=== PATIENT | female | born 1945 | race Caucasian/White ===

== ENCOUNTER 2018-12-16 07:30 | Inpatient (IN) | payer MEDICARE, BC ==
[2018-12-06 14:34] VITALS: Ht 162.6 cm; Wt 70.0 kg
[2018-12-16] VITALS (33 sets, daily range): BP systolic 106–119; BP diastolic 56–70; PULSE 96–133; RESP 14–17
[~2018-12-16] VITALS: Ht 162.6 cm; Wt 70.0 kg
[~2018-12-16 07:30] MED LIST: ACETAMINOPHEN 500 MG TAB PO ONE; CEFAZOLIN 2 GM/50 ML (PMX) 50 ML IVPB ONE; DEXAMETHASONE 4 MG/ML 1 ML INJ IV ONE; LACTATED RINGER'S 1,000 ML IV* SCH; PROPOFOL 200 MG INJ ONE; TRANEXAMIC ACID 1GM/100ML(PMX) 100 ML INTRA-OP X1 IVPB ONE; TRANEXAMIC ACID 1GM/100ML(PMX) 100 ML PRE-OP X1 IVPB ONE
[2018-12-16] MEDS ORDERED: LORA-444 PO (10:37)
[2018-12-16] MEDS ORDERED: SERT100T PO (10:37)
[2018-12-16] MEDS ORDERED: LEVO100T82 PO (10:38)
[2018-12-16] MEDS ORDERED: LIOT5TAB3 PO (10:38)
[2018-12-16] MEDS ORDERED: TURM500C9 PO (10:39)
[2018-12-16] MEDS ORDERED: [UNRECOGNIZED DRUG - CODE] PO (10:39)
[2018-12-16] MEDS ORDERED: CHOL100062 PO (10:42)
[2018-12-16] MEDS ORDERED: MELO7.5T38 PO (10:42)
[2018-12-16] MEDS: ACETAMINOPHEN 1000MG/100ML IV 100 ML IVPB SCH ×2 (10:54→11:31)
--- NOTE | 2018-12-16 11:55 | HPN ---
Date/Time of Note Date/Time of Note DATE: 12/16/18 TIME: 11:54 Interval H&P Admission Note Pt. seen H&P reviewed: No system changes WALDEMAR RIBEIRO Dec 16, 2018 11:54
[2018-12-16] MEDS ORDERED: METOCLOPRAMIDE 10 MG INJ ONE (12:36)
--- NOTE | 2018-12-16 12:39 | PREAC ---
Date/Time of Note Date/Time of Note DATE: 12/16/18 TIME: 12:37 Anesthesia Eval and Record Evaluation Time Pre-Procedure Interview DATE: 12/16/18 TIME: 12:37 Age 73 Sex female NPO: 8 hrs Preoperative diagnosis Right hip primary OA Planned procedure right hip toal revision Past Medical History Past Medical History: Includes Endo: Hypothyroid Neuro: Other (migrane) Surgery & Anesthesia Issues No known issue Meds Anticoagulation: No Beta Valerie within 24 hr: No Reason Beta Valerie not given: Pt. not on B-Valerie Reported Medications Cholecalciferol* (Vitamin D3*) 1,000 Unit Tablet, 1000 UNIT PO DAILY, TAB 12/16/18 Meloxicam* (Meloxicam*) 7.5 Mg Tablet, 7.5 MG PO BID, #30 TAB 12/16/18 Selenium* (Selenimin*) 200 Mcg Tablet, 200 MCG PO DAILY, TAB 12/16/18 Turmeric Root Extract (Turmeric) 500 Mg Capsule, 500 MG PO DAILY, CAP 12/16/18 Liothyronine Sodium* (Cytomel*) 5 Mcg Tablet, 5 MCG PO DAILY, TAB 12/16/18 Levothyroxine Sodium* (Levoxyl*) 100 Mcg Tablet, 100 MCG PO BEFORE BREAKFAST, #30 TAB 12/16/18 Sertraline Hcl* (Zoloft*) 100 Mg Tablet, 100 MG PO QHS, #30 TAB 12/16/18 Lorazepam* (Ativan*) 2 Mg Tablet, 2 MG PO BID PRN for SLEEP, #30 TAB 12/16/18 Current Medications Lactated Ringer's 1,000 ml @ 125 mls/hr Q8H IV* ; Start 12/16/18 at 06:00; Stop 12/16/18 at 13:59 Acetaminophen 100 ml @ 400 mls/hr ONCE IVPB Last administered on 12/16/18at 11:31; Admin Dose 400 MLS/HR; Start 12/16/18 at 10:54; Stop 12/16/18 at 16:00 Meds reviewed: Yes Allergies Coded Allergies: Sulfa (Sulfonamide Antibiotics) (Verified Allergy, Severe, RESP DIFFICULT Y, 12/06/18) TURN RED adhesive tape (Verified Allergy, Unknown, 12/16/18) Uncoded Allergies: NARCOTICS (Adverse Reaction, Unknown, PT HAS HALLUCINATIONS, 12/16/18) Allergies Reviewed: Yes Labs/Studies Labs Reviewed: Reviewed by anesthesiologist Blood Bank Test 12/16/18 10:45 Antibody Screen NEGATIVE Blood Type O POSITIVE test: N/A Studies: ECG (sr), CXR (nl) Pre-procedure Exam Airway: Adequate mouth opening Mallampati: Mallampati II Teeth: Normal Lung: Normal Heart: Normal ASA Physical Status ASA physical status: 2 Emergency: None Planned Anesthetic General/MAC: ETT, LMA Neuraxial: Spinal Planned Pain Management Parenteral pain med Pre-operative Attestations Prior to commencing anesthesia and surgery, the patient was re-evaluated, there was verification of: *The patient's identity *The results of appropriate recent lab work and preoperative vital signs *The above evaluation not changing prior to induction *Anesthetic plan, risk benefits, alternative and complications discussed with patient/family; questions answered; patient/family understands, accepts and wishes to proceed. CORINE HORAN MD Dec 16, 2018 12:39
[2018-12-16] MEDS ORDERED: POLYMYXIN B 500000 UNIT INJ ONE (12:42)
[2018-12-16] MEDS ORDERED: BACITRACIN 50000 UNITS INJ ONE (12:43)
[2018-12-16] MEDS ORDERED: DIPHENHYDRAMINE 50 MG INJ IV PRN (13:00)
[2018-12-16] MEDS ORDERED: LABETALOL HCL 20MG INJ IV PRN (13:00)
[2018-12-16] MEDS ORDERED: ONDANSETRON 4 MG INJ IV PRN (13:00)
[2018-12-16] MEDS ORDERED: hydrALAzine 20 MG INJ IV PRN (13:00)
[2018-12-16] MEDS ORDERED: HYDROmorphONE 1 MG/5 ML IV SYRINGE IV PRN ×3 (13:00)
[2018-12-16] MEDS ORDERED: ONDANSETRON 4 MG INJ ONE (13:04)
[2018-12-16] MEDS ORDERED: DEXAMETHASONE 4 MG/ML 5 ML INJ ONE (13:04)
[2018-12-16] MEDS ORDERED: PROPOFOL 20 ML ONE (13:04)
[2018-12-16] MEDS ORDERED: HYDROmorphONE 2 MG/ML SYG ONE (13:05)
[2018-12-16] MEDS ORDERED: TRANEXAMIC ACID 1GM/100ML(PMX) 100 ML ONE ×2 (13:18→13:53)
[2018-12-16] MEDS ORDERED: CEFAZOLIN 1 GM INJ ONE (13:28)
[2018-12-16] MEDS ORDERED: POLYMYXIN B 500000 UNIT INJ IRR ONE (13:59)
[2018-12-16] MEDS ORDERED: PHENYLephrine (100 MCG/ML) 5ML SYG ONE (14:34)
[2018-12-16] MEDS ORDERED: ALBUMIN HUMAN 5% 250 ML ONE (15:17)
[2018-12-16] MEDS ORDERED: ROPIVACAINE 0.5 % 30 ML VIAL ONE (15:18)
[2018-12-16] MEDS ORDERED: EPHEDrine 50 MG INJ ONE (15:35)
--- NOTE | 2018-12-16 15:49 | SIPON ---
Date/Time of Note Date/Time of Note DATE: 12/16/18 TIME: 15:47 Operative Report Preoperative Diagnosis wear of metal on metal hip right Postoperative Diagnosis same Operation/Procedure Performed revision of right JUSTINE Surgeon see signature line printing assistant none Anesthesia: spinal Estimated blood loss: other Transfusion Required none Specimen cultures Grafts/Implants DePuy hip, 60 cup, 40 head, X neck on ,modular han stem Complications none WALDEMAR RIBEIRO Dec 16, 2018 15:49
--- NOTE | 2018-12-16 15:55 | OPR ---
Date/Time of Note Date/Time of Note DATE: 12/16/18 TIME: 15:49 Operative Report Procedure Date: Dec 16, 2018 Preoperative Diagnosis Failed right hip replacement, wear of kcybv-tp-[id number] prosthesis Postoperative Diagnosis Same Operation/Procedure Performed Revision of right total hip replacement Surgeon see signature line Quarrying Manager None Anesthesia Type: spinal Estimated Blood Loss: other Transfusion none Specimen Cultures Grafts/Implants [place] cup, size 60 with 40 x 60 mm 10 degree liner, size X neck for Luis Angel modular stem and 40 mm ceramic head Tubes/Drains None Complications none Pt Condition Post Procedure: stable Disposition: PACU Indications The patient is a 73-year-old female with pain and symptoms related to a right koywa-pa-kgted hip. Her metal ion levels are very high suggesting wear and osteolysis Procedure Description The patient was placed supine on the operating room table. The right hip was prepped and draped in the usual manner. An anterior approach was used. The plane between the sartorius and tensor fascia saulo was developed in a blunt fashion. Branches of the circumflex vessels were identified and cauterized with aqua Mantis. The hip capsule was opened. Cultures were obtained. There was evidence of wear and metallosis at the trunnion. The femoral neck and head were removed. The modular stem was left in place. The acetabular component was then removed with an explant. The acetabulum was reamed up to a size 58. A 60 mm cup was well fitting. This was placed with 2 screws to enhance fixation. A liner was placed to accommodate a 40 mm femoral head. The liner had a 10 degree build-up on the anterolateral aspect to enhance stability. Different necks were tried and the modular stem. The size X stem which increased the offset and decrease the length resulted in the best stability. It was noted that with this combination, the right hip has increased offset of about 3 mm and increased length of about 3 mm compared to the left side. This was accepted due to excellent stability. Any attempt to change the length or offset resulted in an unstable hip. Therefore the final prosthesis was placed to create the most stable hip. A 40 mm ceramic head was placed. The hip was thoroughly irrigated and injected with pain cocktail. Hemostasis was confirmed. The wound was closed in layers using #1 strata fix for deep fascia, 2-0 Vicryl for subcutaneous tissue and 3-0 Monocryl for the skin. Patient was transferred to the recovery room in stable condition WALDEMAR RIBEIRO Dec 16, 2018 15:55
[2018-12-16] MEDS ORDERED: NALOXONE (0.4 MG/ML) INJ IV PRN (16:00)
[2018-12-16] MEDS ORDERED: MAGNESIUM HYDROXIDE 30ML CUP PO PRN (16:00)
[2018-12-16] MEDS ORDERED: KETOROLAC 15 MG INJ IV PRN (16:00)
[2018-12-16] MEDS ORDERED: NACL 0.9% 3 ML SYG IV SCH (16:00)
--- NOTE | 2018-12-16 16:21 | CONS ---
Assessment/Plan Assessment/Plan Problems: (1) Tachycardia Status: Acute Comment: Pt. is noted post-operatively to have lost significant blood. On LR replacement. Check H/H stat and see if transfusion needed. Expect this will resolve shortly. (2) Anxiety disorder Status: Chronic Comment: lorazepam prn. (3) Major depressive disorder, recurrent, in full remission Status: Chronic Comment: cont. sertraline 100 mg/d (4) Hypothyroidism Status: Chronic Comment: Cont. LT4 and T3. Will check TFT's especially considering tachycardia (5) Migraine without aura and without status migrainosus, not intractable Status: Chronic Comment: Pt. takes no meds for this. Will monitor in case it should occur. (6) Failure of right total hip arthroplasty Status: Resolved Comment: Per primary team (7) Aftercare following right hip joint replacement surgery Status: Acute Comment: Pt. is immediately post-op. Expect tachycardia to resolve and mental status to improve as she recovers from anesthesia. PT and pain control per primary team. Will follow and manage any other medical issues should they arise. Consultation Date/Type/Reason Admit Date/Time Dec 16, 2018 at 10:15 Date of Consultation: Dec 16, 2018 Type of Consult Medicine Reason for Consultation Medical Management Requesting Provider: WALDEMAR RIBEIRO Date/Time of Note DATE: 12/16/18 TIME: 16:10 Hx of Present Illness The patient is a 73-year-old C female with h/o hypothyroidism and migraines s/p R hip replacement in the past. She has been suffering pain and symptoms related to a right qetac-hq-skjfu hip. She sought f/u w/ ortho who found metal ion levels were very high suggesting wear and osteolysis. Pt. scheduled for revision surgery today. Is immediately post-op and not able to give clear history at this time. Subjective hx not possible: pt non-verbal Past Medical History Medical History: hypothyroid, other (OA, migraines, anxiety, depression) Home Meds Reported Medications Cholecalciferol* (Vitamin D3*) 1,000 Unit Tablet, 1000 UNIT PO DAILY, TAB 12/16/18 Meloxicam* (Meloxicam*) 7.5 Mg Tablet, 7.5 MG PO BID, #30 TAB 12/16/18 Selenium* (Selenimin*) 200 Mcg Tablet, 200 MCG PO DAILY, TAB 12/16/18 Turmeric Root Extract (Turmeric) 500 Mg Capsule, 500 MG PO DAILY, CAP 12/16/18 Liothyronine Sodium* (Cytomel*) 5 Mcg Tablet, 5 MCG PO DAILY, TAB 12/16/18 Levothyroxine Sodium* (Levoxyl*) 100 Mcg Tablet, 100 MCG PO BEFORE BREAKFAST, #30 TAB 12/16/18 Sertraline Hcl* (Zoloft*) 100 Mg Tablet, 100 MG PO QHS, #30 TAB 12/16/18 Lorazepam* (Ativan*) 2 Mg Tablet, 2 MG PO BID PRN for SLEEP, #30 TAB 12/16/18 Medications Current Medications Hydromorphone HCl (Dilaudid) 0.2 mg PACU PRN IV MILD PAIN 1-3; Start 12/16/18 at 13:00; Stop 12/16/18 at 20:00 Hydromorphone HCl (Dilaudid) 0.4 mg PACU PRN IV MOD PAIN 4-6; Start 12/16/18 at 13:00; Stop 12/16/18 at 20:00 Hydromorphone HCl (Dilaudid) 0.6 mg PACU PRN IV SEVERE PAIN 7-10; Start 12/16/18 at 13:00; Stop 12/16/18 at 20:00 Ondansetron HCl (Zofran Inj) 4 mg PACU ORDER PRN IV NAUSEA/VOMITING; Start 12/16/18 at 13:00; Stop 12/16/18 at 20:00 Labetalol HCl (Labetalol) 5 mg PACU ORDER PRN IV HIGH BLOOD PRESSURE; Start 12/16/18 at 13:00; Stop 12/16/18 at 20:00 Hydralazine HCl (Apresoline) 5 mg PACU ORDER PRN IV HIGH BLOOD PRESSURE; Start 12/16/18 at 13:00; Stop 12/16/18 at 20:00 Diphenhydramine HCl (Benadryl) 25 mg PACU ORDER PRN IV .PRURITUS; Start 12/16/18 at 13:00; Stop 12/16/18 at 20:00 Cholecalciferol (Vitamin D) 1,000 unit DAILY PO ; Start 12/17/18 at 09:00; Status UNV Levothyroxine Sodium (Synthroid) 100 mcg BEFORE BREAKFAST PO ; Start 12/17/18 at 07:00; Status UNV Liothyronine Sodium (Cytomel) 5 mcg DAILY PO ; Start 12/17/18 at 09:00; Status UNV Lorazepam (Ativan) 2 mg BID PRN PO SLEEP; Start 12/16/18 at 16:00; Status UNV Sertraline HCl (Zoloft) 100 mg QHS PO ; Start 12/16/18 at 21:00; Status UNV Lactated Ringer's 1,000 ml @ 80 mls/hr [id number] IV ; Start 12/16/18 at 15:55; Status UNV Hydromorphone HCl (Dilaudid) 1 mg Q3H PRN IV .BREAKTHROUGH PAIN; Start 12/16/18 at 16:00; Status UNV Ondansetron HCl (Zofran Inj) 4 mg Q4H PRN IV NAUSEA/VOMITING; Start 12/17/18 at 16:00; Status UNV Cefazolin Sodium/ Dextrose 50 ml @ 100 mls/hr Q8H IVPB ; Start 12/16/18 at 16:00; Stop 12/17/18 at 08:29; Status UNV Celecoxib (Celebrex) 100 mg BID PO ; Start 12/17/18 at 09:00; Status UNV Gabapentin (Neurontin) 100 mg TID PO ; Start 12/16/18 at 21:00; Status UNV Pantoprazole (Protonix Tab) 40 mg DAILY@06 PO ; Start 12/17/18 at 06:00; Status UNV Docusate Sodium (Colace) 200 mg BID PO ; Start 12/17/18 at 09:00; Stop 12/19/18 at 21:01; Status UNV Magnesium Hydroxide (Milk Of Mag) 30 ml HS PRN PO .CONSTIPATION; Start 12/16/18 at 16:00; Status UNV Ketorolac Tromethamine (Toradol) 15 mg Q6H PRN IV .PAIN; Start 12/16/18 at 16:00; Status UNV Naloxone HCl (Narcan) 0.2 mg Q2M PRN IV .RESP RATE; Start 12/16/18 at 16:00; Status UNV IV Flush (NS 3 ml) 3 ml per protocol IV ; Start 12/16/18 at 16:00; Status UNV Aspirin (Halfprin) 81 mg BID PO ; Start 12/17/18 at 09:00; Status UNV Allergies: Coded Allergies: Sulfa (Sulfonamide Antibiotics) (Verified Allergy, Severe, RESP DIFFICULTY, 12/06/18) TURN RED adhesive tape (Verified Allergy, Unknown, 12/16/18) Uncoded Allergies: NARCOTICS (Adverse Reaction, Unknown, PT HAS HALLUCINATIONS, 12/16/18) Past Surgical History Past Surgical Hx: other (right total hip in the past, o/w unknown) Family History Significant Family History: other (not available at this time) Social History pt. unable to give this history at this time. Alcohol Use: other (unknown) Smoking Status: Former smoker Drug Use: other (unknown) Exam/Review of Systems Exam Vitals VS - Last 72 Hours, by Label Date Temp Pulse Resp B/P (MAP) Pulse Ox O2 O2 Flow FiO2 Time Delivery Rate 12/16/18 98.7 15:59 Vital Signs Date Temp Pulse Resp B/P (MAP) Pulse Ox O2 O2 Flow FiO2 Time Delivery Rate 12/16/18 98.7 15:59 Constitutional: well developed, non-verbal; No alert, No oriented Eyes: nl conjunctiva, EOMI, nl lids, nl sclera, PERRL ENMT: nl external ears & nose, nl lips & teeth, mucosa pink and moist Neck: supple, non-tender; No bruits, No masses, No thyromegaly Respiratory: clear to auscultation, normal air movement Cardiovascular: nl pulses; No regular rate and rhythm (tachycardic and regular, rate 120-130 bpm), No edema Gastrointestinal: soft, nl liver, spleen, non-tender, bowel sounds; No mass, No rebound or guarding Musculoskeletal: nl extremities to inspection Extremities: normal pulses; No cyanosis, No clubbing, No edema Neurological: lethargic Medications Medication Current Medications Hydromorphone HCl (Dilaudid) 0.2 mg PACU PRN IV MILD PAIN 1-3; Start 12/16/18 at 13:00; Stop 12/16/18 at 20:00 Hydromorphone HCl (Dilaudid) 0.4 mg PACU PRN IV MOD PAIN 4-6; Start 12/16/18 at 13:00; Stop 12/16/18 at 20:00 Hydromorphone HCl (Dilaudid) 0.6 mg PACU PRN IV SEVERE PAIN 7-10; Start 12/16/18 at 13:00; Stop 12/16/18 at 20:00 Ondansetron HCl (Zofran Inj) 4 mg PACU ORDER PRN IV NAUSEA/VOMITING; Start 12/16/18 at 13:00; Stop 12/16/18 at 20:00 Labetalol HCl (Labetalol) 5 mg PACU ORDER PRN IV HIGH BLOOD PRESSURE; Start 12/16/18 at 13:00; Stop 12/16/18 at 20:00 Hydralazine HCl (Apresoline) 5 mg PACU ORDER PRN IV HIGH BLOOD PRESSURE; Start 12/16/18 at 13:00; Stop 12/16/18 at 20:00 Diphenhydramine HCl (Benadryl) 25 mg PACU ORDER PRN IV .PRURITUS; Start 12/16/18 at 13:00; Stop 12/16/18 at 20:00 Cholecalciferol (Vitamin D) 1,000 unit DAILY PO ; Start 12/17/18 at 09:00; Status UNV Levothyroxine Sodium (Synthroid) 100 mcg BEFORE BREAKFAST PO ; Start 12/17/18 a t 07:00; Status UNV Liothyronine Sodium (Cytomel) 5 mcg DAILY PO ; Start 12/17/18 at 09:00; Status UNV Lorazepam (Ativan) 2 mg BID PRN PO SLEEP; Start 12/16/18 at 16:00; Status UNV Sertraline HCl (Zoloft) 100 mg QHS PO ; Start 12/16/18 at 21:00; Status UNV Lactated Ringer's 1,000 ml @ 80 mls/hr [id number] IV ; Start 12/16/18 at 15:55; Status UNV Hydromorphone HCl (Dilaudid) 1 mg Q3H PRN IV .BREAKTHROUGH PAIN; Start 12/16/18 at 16:00; Status UNV Ondansetron HCl (Zofran Inj) 4 mg Q4H PRN IV NAUSEA/VOMITING; Start 12/17/18 at 16:00; Status UNV Cefazolin Sodium/ Dextrose 50 ml @ 100 mls/hr Q8H IVPB ; Start 12/16/18 at 16:00; Stop 12/17/18 at 08:29; Status UNV Celecoxib (Celebrex) 100 mg BID PO ; Start 12/17/18 at 09:00; Status UNV Gabapentin (Neurontin) 100 mg TID PO ; Start 12/16/18 at 21:00; Status UNV Pantoprazole (Protonix Tab) 40 mg DAILY@06 PO ; Start 12/17/18 at 06:00; Status UNV Docusate Sodium (Colace) 200 mg BID PO ; Start 12/17/18 at 09:00; Stop 12/19/18 at 21:01; Status UNV Magnesium Hydroxide (Milk Of Mag) 30 ml HS PRN PO .CONSTIPATION; Start 12/16/18 at 16:00; Status UNV Ketorolac Tromethamine (Toradol) 15 mg Q6H PRN IV .PAIN; Start 12/16/18 at 16:00; Status UNV Naloxone HCl (Narcan) 0.2 mg Q2M PRN IV .RESP RATE; Start 12/16/18 at 16:00; Status UNV IV Flush (NS 3 ml) 3 ml per protocol IV ; Start 12/16/18 at 16:00; Status UNV Aspirin (Halfprin) 81 mg BID PO ; Start 12/17/18 at 09:00; Status UNV BARBARA LU MD Dec 16, 2018 16:21
[2018-12-16] MEDS: CEFAZOLIN 2 GM/50 ML (PMX) 50 ML IVPB SCH ×2 (16:29→23:41)
[2018-12-16] MEDS: SERTRALINE 100 MG TAB PO SCH (20:53)
[2018-12-16] MEDS: GABAPENTIN 100 MG CAP PO SCH ×2 (20:53→20:57)
[2018-12-16] MEDS: LACTATED RINGER'S 1,000 ML IV SCH (20:54)
[2018-12-16] MEDS: HYDROmorphONE 1 MG/ML SYG IV PRN (22:10)
[2018-12-16] MEDS: ONDANSETRON 4 MG INJ IV PRN (22:17)
[2018-12-17] VITALS (12 sets, daily range): BP systolic 11–127; BP diastolic 54–59; PULSE 65–82; RESP 17–20
[2018-12-17] MEDS: LORAZEPAM 1 MG TAB PO PRN ×2 (01:40→23:06)
[2018-12-17] MEDS: LACTATED RINGER'S 1,000 ML IV SCH (04:25)
[2018-12-17] MEDS: PANTOPRAZOLE (EC) 40 MG TAB PO SCH (06:32)
[2018-12-17] MEDS ORDERED: LIOTHYRONINE 5 MCG TAB PO SCH ×2 (07:00→09:00)
[2018-12-17] MEDS ORDERED: LEVOTHYROXINE 100 MCG TAB PO SCH (07:00)
[2018-12-17] MEDS: CHOLECALCIFEROL 1,000 UNIT TAB PO SCH (09:00)
[2018-12-17] MEDS: GABAPENTIN 100 MG CAP PO SCH ×2 (09:00→12:16)
[2018-12-17] MEDS: HYDROmorphONE 1 MG/ML SYG IV PRN ×2 (09:11→16:35)
[2018-12-17] MEDS: DOCUSATE SODIUM 100 MG CAP PO SCH ×2 (09:12→20:13)
[2018-12-17] MEDS: ASPIRIN (EC) 81 MG TAB PO SCH ×2 (09:12→20:13)
[2018-12-17] MEDS: CEFAZOLIN 2 GM/50 ML (PMX) 50 ML IVPB SCH (09:16)
[2018-12-17] MEDS: CELECOXIB 100 MG CAP PO SCH ×2 (09:36→20:13)
--- NOTE | 2018-12-17 12:18 | PAC ---
Date/Time of Note Date/Time of Note DATE: 12/17/18 TIME: 12:18 Post-Anesthesia Notes Post-Anesthesia Note Last documented vital signs Vital Signs Date Temp Pulse Resp B/P (MAP) Pulse Ox O2 O2 Flow FiO2 Time Delivery Rate 12/17/18 68 12:11 12/17/18 98.0 70 20 104/59 98 Room Air 11:16 (74) 12/17/18 2.0 07:44 12/16/18 27 21:19 Activity: WNL Respiratory function: WNL Cardiovascular function: WNL Mental status: Baseline Pain reasonably controlled: Yes Hydration appropriate: Yes Nausea/Vomiting absent: No CORINE HORAN MD Dec 17, 2018 12:18
--- NOTE | 2018-12-17 13:54 | EN ---
Date/Time of Note Date/Time of Note DATE: 12/17/18 TIME: 13:52 Event Note Medicine Medicine Event Note Additional history now available: PSH: L-S spine fusion, B inguinal hernia, R JUSTINE FHx: Alzheimer disease Shx: IRASEMA Mcneal, raised in [place], in [facility] since 1978, has masters in psych, works as psychologist and teaches, , 2 children, (+) social EtOH, distant h/o adolescent smoking tobacco, no IDU BARBARA LU MD Dec 17, 2018 13:54
--- NOTE | 2018-12-17 13:59 | CONS ---
Assessment/Plan Assessment/Plan Problems: (1) Postoperative anemia due to acute blood loss Status: Acute Comment: Hgb down to 7.9 today. No need for transfusion provided it does not continue to decrease. Will start FeSO4 325 mg po tid. If Hgb gets to be < 7, will order PRBC. Check again tomorrow. (2) Tachycardia Status: Resolved Comment: As expected (3) Hypothyroidism Status: Chronic Comment: Overtreated w/ thyroid hormone and this likely played a part in pt.'s tachycardia. Will stop liothyronine for now. Can restart later at a lower dosage. Will also decrease LT4 to 88 mcg. Reeval as outpt. (4) Anxiety disorder Status: Chronic Comment: lorazepam as needed (5) Major depressive disorder, recurrent, in full remission Status: Chronic Comment: Cont. sertraline (6) Failure of right total hip arthroplasty Status: Resolved Comment: per primary team (7) Aftercare following right hip joint replacement surgery Status: Acute Comment: Doing well POD#1. Does not want gabapentin and this should be fine. Pain management and PT per primary team. Monitor blood counts and plan d/c when primary team ready to do so. Consultation Date/Type/Reason Admit Date/Time Dec 16, 2018 at 10:15 Initial Consult Date 12/16/18 Type of Consult Medicine Reason for Consultation Medical Management Requesting Provider: WALDEMAR RIBEIRO Date/Time of Note DATE: 12/17/18 TIME: 13:54 24 HR Interval Summary Constitutional: no complaints, improved Detailed Summary Respiratory: no complaints Cardiovascular: no complaints Gastrointestinal: no complaints Genitourinary: no complaints Musculoskeletal: bone/joint pain (R hip but does not bother her at rest, feels like fire when she stands on it) Neurologic: no complaints Exam/Review of Systems Exam Vitals VS - Last 72 Hours, by Label Date Temp Pulse Resp B/P (MAP) Pulse Ox O2 O2 Flow FiO2 Time Delivery Rate 12/17/18 68 12:11 12/17/18 98.0 69 20 104/59 98 Room Air 11:16 (74) 12/17/18 66 08:13 12/17/18 Nasal 2.0 07:44 Cannula 12/17/18 97.6 67 20 127/59 98 07:22 (81) 12/17/18 98.4 65 17 106/54 98 04:27 (71) 12/17/18 66 04:00 12/17/18 2.0 01:40 12/17/18 98.5 76 17 96/55 (69) 97 00:37 12/17/18 76 00:00 12/16/18 2.0 27 21:19 12/16/18 98.4 96 17 109/61 98 20:31 (77) 12/16/18 Nasal 2.0 20:30 Cannula 12/16/18 102 20:00 12/16/18 106 19:56 12/16/18 98.6 108 15 106/62 99 Nasal 2.0 18:23 (77) Cannula 12/16/18 108 14 108/58 99 Nasal 2.0 18:18 (75) Cannula 12/16/18 110 14 109/62 99 Nasal 2.0 18:13 (78) Cannula 12/16/18 110 14 109/63 99 Nasal 2.0 18:08 (78) Cannula 12/16/18 112 15 111/58 100 Nasal 2.0 18:03 (75) Cannula 12/16/18 112 14 106/67 100 Nasal 2.0 17:58 (80) Cannula 12/16/18 112 16 107/68 100 Nasal 2.0 17:53 (81) Cannula 12/16/18 112 16 109/67 100 Nasal 2.0 17:48 (81) Cannula 12/16/18 112 15 114/66 100 Nasal 2.0 17:43 (82) Cannula 12/16/18 114 16 112/66 100 Nasal 2.0 17:38 (81) Cannula 12/16/18 114 15 111/68 100 Nasal 2.0 17:33 (82) Cannula 12/16/18 116 17 109/63 99 Nasal 2.0 17:28 (78) Cannula 12/16/18 116 16 110/65 100 Nasal 2.0 17:23 (80) Cannula 12/16/18 116 14 113/70 100 Nasal 2.0 17:18 (84) Cannula 12/16/18 116 16 111/56 100 Nasal 2.0 17:13 (74) Cannula 12/16/18 118 16 111/58 100 Nasal 2.0 17:08 (75) Cannula 12/16/18 116 15 115/60 100 Nasal 2.0 17:03 (78) Cannula 12/16/18 118 17 115/59 99 Nasal 2.0 16:58 (77) Cannula 12/16/18 118 16 117/66 100 Nasal 2.0 16:53 (83) Cannula 12/16/18 Nasal 2.0 16:50 Cannula 12/16/18 118 17 119/62 99 Nasal 16:48 (81) Cannula 12/16/18 118 16 114/65 99 Nasal 16:43 (81) Cannula 12/16/18 118 16 117/66 99 Nasal 16:38 (83) Cannula 12/16/18 120 17 114/67 99 Nasal 16:33 (83) Cannula 12/16/18 120 16 111/57 99 Nasal 16:28 (75) Cannula 12/16/18 120 16 112/59 99 Nasal 16:23 (76) Cannula 12/16/18 120 15 115/62 98 Nasal 16:18 (79) Cannula 12/16/18 118 16 116/61 99 Nasal 16:13 (79) Cannula 12/16/18 127 16 111/62 99 Nasal 16:08 (78) Cannula 12/16/18 126 16 110/62 98 Nasal 16:03 (78) Cannula 12/16/18 98.7 15:59 12/16/18 100.0 133 17 118/56 98 Nasal 15:58 (76) Cannula Vital Signs Date Temp Pulse Resp B/P (MAP) Pulse Ox O2 O2 Flow FiO2 Time Delivery Rate 12/17/18 68 12:11 12/17/18 98.0 20 104/59 98 Room Air 11:16 (74) 12/17/18 2.0 07:44 12/16/18 27 21:19 Intake and Output 12/16/18 12/16/18 12/17/18 1515:00 23:00 07:00 IntakeIntake Total 2000 ml 1150 ml OutputOutput Total 1000 ml BalanceBalance 1000 ml 1150 ml Constitutional: alert, oriented, well developed Psych: no complaints, nl mood/affect Respiratory: clear to auscultation, normal air movement Cardiovascular: regular rate and rhythm, nl pulses; No edema, No murmurs/extra sounds, No rub Gastrointestinal: soft, nl liver, spleen, non-tender, bowel sounds; No mass, No rebound or guarding Musculoskeletal: nl extremities to inspection Extremities: normal pulses; No cyanosis, No clubbing, No edema Neurological: MOLD MOVER II-XII intact, nl mental status, nl speech, nl strength Results Result Diagram: 12/17/18 0638 12/17/18 0638 Results 24hrs Laboratory Tests Test 12/16/18 16:35 12/17/18 06:38 Hemoglobin 10.5 L 7.8 #L Hematocrit 33.2 L 24.2 #L White Blood Count 11.9 H Red Blood Count 2.56 L Mean Corpuscular Volume 94.5 Mean Corpuscular Hemoglobin 30.5 Mean Corpuscular Hemoglobin Concent 32.2 Red Cell Distribution Width 12.4 Platelet Count 225 Mean Platelet Volume 9.2 Immature Granulocytes % 0.700 H Neutrophils % 76.2 Lymphocytes % 11.6 L Monocytes % 11.3 H Eosinophils % 0.1 Basophils % 0.1 Nucleated Red Blood Cells % 0.0 Immature Granulocytes # 0.080 H Neutrophils # 9.0 H Lymphocytes # 1.4 Monocytes # 1.3 H Eosinophils # 0.0 Basophils # 0.0 Nucleated Red Blood Cells # 0.0 Sodium Level 138 Potassium Level 4.3 Chloride Level 104 Carbon Dioxide Level 28 Anion Gap 6 Blood Urea Nitrogen 11 Creatinine 0.67 Est Glomerular Filtrat Rate mL/min Glucose Level 119 Calcium Level 8.9 Thyroid Stimulating Hormone (TSH) < 0.015 L Free Thyroxine Index 2.28 Thyroxine (T4) 5.7 Triiodothyronine (T3) Uptake 40.0 Medications Medication Current Medications Cholecalciferol (Vitamin D) 1,000 unit DAILY PO ; Start 12/17/18 at 09:00 Lorazepam (Ativan) 2 mg BID PRN PO SLEEP Last administered on 12/17/18at 01:40; Admin Dose 2 MG; Start 12/16/18 at 16:00 Sertraline HCl (Zoloft) 100 mg QHS PO Last administered on 12/16/18at 20:53; Admin Dose 100 MG; Start 12/16/18 at 21:00 Lactated Ringer's 1,000 ml @ 80 mls/hr [id number] IV Last administered on 12/16/18at 20:54; Admin Dose 80 MLS/HR; Start 12/16/18 at 15:55 Hydromorphone HCl (Dilaudid) 1 mg Q3H PRN IV .BREAKTHROUGH PAIN Last administered on 12/17/18at 09:11; Admin Dose 1 MG; Start 12/16/18 at 16:00 Celecoxib (Celebrex) 100 mg BID PO Last administered on 12/17/18 09:36; Admin Dose 100 MG; Start 12/17/18 at 09:00 Pantoprazole (Protonix Tab) 40 mg DAILY@06 PO Last administered on 12/17/18 06:32; Admin Dose 40 MG; Start 12/17/18 at 06:00 Docusate Sodium (Colace) 200 mg BID PO Last administered on 12/17/18at 09:12; Admin Dose 200 MG; Start 12/17/18 at 09:00; Stop 12/19/18 at 21:01 Magnesium Hydroxide (Milk Of Mag) 30 ml HS PRN PO .CONSTIPATION; Start 12/16/18 at 16:00 Ketorolac Tromethamine (Toradol) 15 mg Q6H PRN IV .PAIN Last administered on 12/16/18at 20:53; Admin Dose 15 MG; Start 12/16/18 at 16:00 Naloxone HCl (Narcan) 0.2 mg Q2M PRN IV .RESP RATE; Start 12/16/18 at 16:00 IV Flush (NS 3 ml) 3 ml per protocol IV ; Start 12/16/18 at 16:00 Aspirin (Halfprin) 81 mg BID PO Last administered on 12/17/18at 09:12; Admin Dos e 81 MG; Start 12/17/18 at 09:00 Ondansetron HCl (Zofran Inj) 4 mg Q4H PRN IV NAUSEA/VOMITING Last administered on 12/16/18at 22:17; Admin Dose 4 MG; Start 12/16/18 at 22:00 Levothyroxine Sodium (Synthroid) 88 mcg DAILY@06 PO ; Start 12/18/18 at 06:00 BARBARA LU MD Dec 17, 2018 13:59
[2018-12-17] MEDS ORDERED: ONDANSETRON 4 MG INJ IV PRN (16:00)
[2018-12-17] MEDS ORDERED: DIPHENHYDRAMINE 2.5 MG/ML 5ML CUP PO PRN (19:00)
[2018-12-17] MEDS: FERROUS SULFATE (EC) 325 MG TAB PO SCH (20:13)
[2018-12-17] MEDS: SERTRALINE 100 MG TAB PO SCH (20:14)
[2018-12-18] VITALS (9 sets, daily range): BP systolic 117–135; BP diastolic 57–80; PULSE 76–88; RESP 16–20
[2018-12-18] MEDS: LEVOTHYROXINE 88 MCG TAB PO SCH (05:50)
[2018-12-18] MEDS: PANTOPRAZOLE (EC) 40 MG TAB PO SCH (05:50)
[2018-12-18] MEDS: DOCUSATE SODIUM 100 MG CAP PO SCH ×2 (09:31→21:59)
[2018-12-18] MEDS: CHOLECALCIFEROL 1,000 UNIT TAB PO SCH (09:31)
[2018-12-18] MEDS: HYDROmorphONE 1 MG/ML SYG IV PRN ×2 (09:32→16:55)
[2018-12-18] MEDS: CELECOXIB 100 MG CAP PO SCH ×2 (09:32→22:04)
[2018-12-18] MEDS: FERROUS SULFATE (EC) 325 MG TAB PO SCH ×3 (09:32→21:59)
[2018-12-18] MEDS: ASPIRIN (EC) 81 MG TAB PO SCH ×2 (09:32→21:59)
--- NOTE | 2018-12-18 13:29 | PN ---
Date/Time of Note Date/Time of Note DATE: 12/18/18 TIME: 13:28 Assessment/Plan Lines/Catheters IV Catheter Type (from Nrsg): Saline Lock Morin in Place (from Nrsg): No Assessment/Plan Assessment/Plan 73-year-old female who is doing well after right hip revision. She will go to the [facility] in the next 24-48 hours. She will follow-up in 2 weeks. She is cleared for discharge from the orthopedic standpoint Subjective 24 Hr Interval Summary 73-year-old female who is status post revision of her right hip replacement. T he patient is progressing well and has no fever or chills. Pain is controlled with oral pain medication. She is able to ambulate with a walker. She is getting ready for discharge to rehab center in the next 1-2 days Exam/Review of Systems Vital Signs Vitals Vital Signs Date Temp Pulse Resp B/P (MAP) Pulse Ox O2 O2 Flow FiO2 Time Delivery Rate 12/18/18 76 12:00 12/18/18 99.1 20 122/59 96 Room Air 11:03 (80) 12/18/18 2.0 02:50 12/16/18 27 21:19 Intake and Output 12/17/18 12/17/18 12/18/18 1515:00 23:00 07:00 IntakeIntake Total 1370 ml 220 ml OutputOutput Total 400 ml BalanceBalance 970 ml 220 ml Exam Free Text/Dictation Right hip incision is well-healed. Range of motion is somewhat limited. Mild swelling is noted. There is slight lengthening of the right lower extremity compared to the left. There is no neurovascular deficit Results Result Diagram: 12/18/18 0601 12/18/18 0601 WALDEMAR RIBEIRO Dec 18, 2018 13:29
--- NOTE | 2018-12-18 17:22 | CONS ---
Assessment/Plan Assessment/Plan Problems: (1) Aftercare following right hip joint replacement surgery Status: Acute Comment: POD # 2 clinically doing well. (2) Hypothyroidism Status: Chronic Comment: Dose adjusted to improve suppressed TSH level. (3) Postoperative anemia due to acute blood loss Status: Acute Comment: Stable. No further drop in H/H. Assessment/Plan (Daily) Can downgrade to med/surg ortho. Consultation Date/Type/Reason Admit Date/Time Dec 16, 2018 at 10:15 Initial Consult Date 12/16/18 Type of Consult Internal Medicine Reason for Consultation Post op management of internal medical issues. Requesting Provider: WALDEMAR RIBEIRO Date/Time of Note DATE: 12/18/18 TIME: 17:16 Patient seen at 12:00 24 HR Interval Summary Free Text/Dictation Patient feeling well. Worked with PT without event. Denies chest pain and shortness of breath. Exam/Review of Systems Exam Vitals Vital Signs Date Temp Pulse Resp B/P (MAP) Pulse Ox O2 O2 Flow FiO2 Time Delivery Rate 12/18/18 98.8 79 18 126/62 98 Room Air 15:00 (83) 12/18/18 2.0 02:50 12/16/18 27 21:19 Intake and Output 12/17/18 12/17/18 12/18/18 1414:59 22:59 06:59 IntakeIntake Total 1370 ml 220 ml OutputOutput Total 400 ml BalanceBalance 970 ml 220 ml Constitutional: alert, oriented Head: normocephalic Neck: supple Respiratory: clear to auscultation Cardiovascular: regular rate and rhythm Extremities: normal pulses Results Result Diagram: 12/18/18 0601 12/18/18 0601 Results 24hrs Laboratory Tests Test 12/18/18 06:01 White Blood Count 8.2 # Red Blood Count 2.40 L Hemoglobin 7.4 L Hematocrit 22.8 L Mean Corpuscular Volume 95.0 Mean Corpuscular Hemoglobin 30.8 Mean Corpuscular Hemoglobin Concent 32.5 Red Cell Distribution Width 12.6 Platelet Count 215 Mean Platelet Volume 9.7 Immature Granulocytes % 0.200 Neutrophils % 63.5 Lymphocytes % 22.9 Monocytes % 12.3 H Eosinophils % 0.9 Basophils % 0.2 Nucleated Red Blood Cells % 0.0 Immature Granulocytes # 0.020 Neutrophils # 5.2 Lymphocytes # 1.9 Monocytes # 1.0 H Eosinophils # 0.1 Basophils # 0.0 Nucleated Red Blood Cells # 0.0 Sodium Level 138 Potassium Level 3.8 Chloride Level 104 Carbon Dioxide Level 30 Anion Gap 4 L Blood Urea Nitrogen 11 Creatinine 0.67 Est Glomerular Filtrat Rate mL/min Glucose Level 128 Calcium Level 8.8 Medications Medication Current Medications Cholecalciferol (Vitamin D) 1,000 unit DAILY PO Last administered on 12/18/18 09:31; Admin Dose 1,000 UNIT; Start 12/17/18 at 09:00 Lorazepam (Ativan) 2 mg BID PRN PO SLEEP Last administered on 12/17/18 23:06; Admin Dose 2 MG; Start 12/16/18 at 16:00 Sertraline HCl (Zoloft) 100 mg QHS PO Last administered on 12/16/18 20:53; Admin Dose 100 MG; Start 12/16/18 at 21:00 Hydromorphone HCl (Dilaudid) 1 mg Q3H PRN IV .BREAKTHROUGH PAIN Last administered on 12/18/18 16:55; Admin Dose 1 MG; Start 12/16/18 at 16:00 Celecoxib (Celebrex) 100 mg BID PO Last administered on 12/18/18 09:32; Admin Dose 100 MG; Start 12/17/18 at 09:00 Pantoprazole (Protonix Tab) 40 mg DAILY@06 PO Last administered on 12/18/18 05:50; Admin Dose 40 MG; Start 12/17/18 at 06:00 Docusate Sodium (Colace) 200 mg BID PO Last administered on 12/18/18 09:31; Admin Dose 200 MG; Start 12/17/18 at 09:00; Stop 12/19/18 at 21:01 Magnesium Hydroxide (Milk Of Mag) 30 ml HS PRN PO .CONSTIPATION; Start 12/16/18 at 16:00 Ketorolac Tromethamine (Toradol) 15 mg Q6H PRN IV .PAIN Last administered on 20:53; Admin Dose 15 MG; Start 12/16/18 at 16:00 Naloxone HCl (Narcan) 0.2 mg Q2M PRN IV .RESP RATE; Start 12/16/18 at 16:00 IV Flush (NS 3 ml) 3 ml per protocol IV ; Start 12/16/18 at 16:00 Aspirin (Halfprin) 81 mg BID PO Last administered on 12/18/18 09:32; Admin Dose 81 MG; Start 12/17/18 at 09:00 Ondansetron HCl (Zofran Inj) 4 mg Q4H PRN IV NAUSEA/VOMITING Last administered on 12/16/18 22:17; Admin Dose 4 MG; Start 12/16/18 at 22:00 Levothyroxine Sodium (Synthroid) 88 mcg DAILY@06 PO Last administered on 12/18/18 05:50; Admin Dose 88 MCG; Start 12/18/18 at 06:00 Ferrous Sulfate (Ferrous Sulfate (Ec)) 325 mg TID PO Last administered on 12/18/18 13:43; Admin Dose 325 MG; Start 12/17/18 at 21:00 Diphenhydramine HCl (Benadryl Liquid Cup) 12.5 mg Q6H PRN PO ITCHING Last adm inistered on 12/17/18at 19:04; Admin Dose 12.5 MG; Start 12/17/18 at 19:00 NIKITA CHONG MD Dec 18, 2018 17:22
[2018-12-18] MEDS: SERTRALINE 100 MG TAB PO SCH (21:00)
[2018-12-18] MEDS: LORAZEPAM 1 MG TAB PO PRN (22:04)
[2018-12-19 02:08] VITALS: BP 133/65; PULSE 78; RESP 18
[2018-12-19] MEDS: LEVOTHYROXINE 88 MCG TAB PO SCH (06:04)
[2018-12-19] MEDS: PANTOPRAZOLE (EC) 40 MG TAB PO SCH (06:04)
[2018-12-19 07:26] VITALS: BP 129/67; PULSE 82; RESP 18
[2018-12-19] MEDS: ASPIRIN (EC) 81 MG TAB PO SCH ×2 (09:27→20:39)
[2018-12-19] MEDS: CHOLECALCIFEROL 1,000 UNIT TAB PO SCH (09:27)
[2018-12-19] MEDS: FERROUS SULFATE (EC) 325 MG TAB PO SCH ×3 (09:27→20:39)
[2018-12-19] MEDS: CELECOXIB 100 MG CAP PO SCH ×2 (09:27→20:38)
[2018-12-19] MEDS: HYDROmorphONE 1 MG/ML SYG IV PRN ×2 (09:28→14:25)
[2018-12-19] MEDS: DOCUSATE SODIUM 100 MG CAP PO SCH ×2 (09:28→20:39)
[2018-12-19] MEDS: ONDANSETRON 4 MG INJ IV PRN (10:56)
--- NOTE | 2018-12-19 11:37 | CONS ---
Assessment/Plan Assessment/Plan Problems: (1) Aftercare following right hip joint replacement surgery Status: Acute Comment: POD #3 clinically stable (2) Postoperative anemia due to acute blood loss Status: Acute Comment: Remains stable and asymptomatic. (3) Hypothyroidism Status: Chronic Comment: No acute issues at this time. Assessment/Plan (Daily) Clinically stable Consultation Date/Type/Reason Admit Date/Time Dec 16, 2018 at 10:15 Initial Consult Date 12/16/18 Type of Consult Internal Medicine Reason for Consultation Post operative management of internal medicine issues Requesting Provider: WALDEMAR RIBEIRO Date/Time of Note DATE: 12/19/18 TIME: 11:33 24 HR Interval Summary Free Text/Dictation No events overnight. Transferred from telemetry. Exam/Review of Systems Exam Vitals Vital Signs Date Temp Pulse Resp B/P (MAP) Pulse Ox O2 O2 Flow FiO2 Time Delivery Rate 12/19/18 97.5 82 18 129/67 94 07:26 (87) 12/19/18 21 02:25 12/18/18 Room Air 20:29 12/18/18 2.0 02:50 Intake and Output 12/18/18 12/18/18 12/19/18 1515:00 23:00 07:00 IntakeIntake Total 600 ml 300 ml BalanceBalance 600 ml 300 ml Constitutional: alert, oriented Respiratory: clear to auscultation Cardiovascular: regular rate and rhythm Extremities: normal pulses Results Result Diagram: 12/19/18 0434 12/19/18 0434 Results 24hrs Laboratory Tests Test 12/19/18 04:34 White Blood Count 8.3 Red Blood Count 2.42 L Hemoglobin 7.4 L Hematocrit 22.8 L Mean Corpuscular Volume 94.2 Mean Corpuscular Hemoglobin 30.6 Mean Corpuscular Hemoglobin Concent 32.5 Red Cell Distribution Width 12.7 Platelet Count 227 Mean Platelet Volume 9.8 Immature Granulocytes % 0.500 H Neutrophils % 56.7 Lymphocytes % 29.6 Monocytes % 11.3 H Eosinophils % 1.7 Basophils % 0.2 Nucleated Red Blood Cells % 0.0 Immature Granulocytes # 0.040 H Neutrophils # 4.7 Lymphocytes # 2.5 Monocytes # 0.9 Eosinophils # 0.1 Basophils # 0.0 Nucleated Red Blood Cells # 0.0 Sodium Level 140 Potassium Level 3.7 Chloride Level 107 Carbon Dioxide Level 30 Anion Gap 3 L Blood Urea Nitrogen 8 Creatinine 0.52 Est Glomerular Filtrat Rate mL/min Glucose Level 112 Calcium Level 8.8 Medications Medication Current Medications Cholecalciferol (Vitamin D) 1,000 unit DAILY PO Last administered on 12/19/18 09:27; Admin Dose 1,000 UNIT; Start 12/17/18 at 09:00 Lorazepam (Ativan) 2 mg BID PRN PO SLEEP Last administered on 12/18/18 22:04; Admin Dose 2 MG; Start 12/16/18 at 16:00 Sertraline HCl (Zoloft) 100 mg QHS PO Last administered on 12/16/18 20:53; Admin Dose 100 MG; Start 12/16/18 at 21:00 Hydromorphone HCl (Dilaudid) 1 mg Q3H PRN IV .BREAKTHROUGH PAIN Last administer ed on 12/19/18 09:28; Admin Dose 1 MG; Start 12/16/18 at 16:00 Celecoxib (Celebrex) 100 mg BID PO Last administered on 12/19/18 09:27; Admin Dose 100 MG; Start 12/17/18 at 09:00 Pantoprazole (Protonix Tab) 40 mg DAILY@06 PO Last administered on 12/19/18 06:04; Admin Dose 40 MG; Start 12/17/18 at 06:00 Docusate Sodium (Colace) 200 mg BID PO Last administered on 12/19/18 09:28; Admin Dose 200 MG; Start 12/17/18 at 09:00; Stop 12/19/18 at 21:01 Magnesium Hydroxide (Milk Of Mag) 30 ml HS PRN PO .CONSTIPATION; Start 12/16/18 at 16:00 Ketorolac Tromethamine (Toradol) 15 mg Q6H PRN IV .PAIN Last administered on 12/16/18 20:53; Admin Dose 15 MG; Start 12/16/18 at 16:00 Naloxone HCl (Narcan) 0.2 mg Q2M PRN IV .RESP RATE; Start 12/16/18 at 16:00 IV Flush (NS 3 ml) 3 ml per protocol IV ; Start 12/16/18 at 16:00 Aspirin (Halfprin) 81 mg BID PO Last administered on 12/19/18 09:27; Admin D ose 81 MG; Start 12/17/18 at 09:00 Ondansetron HCl (Zofran Inj) 4 mg Q4H PRN IV NAUSEA/VOMITING Last administered on 12/19/18at 10:56; Admin Dose 4 MG; Start 12/16/18 at 22:00 Levothyroxine Sodium (Synthroid) 88 mcg DAILY@06 PO Last administered on 12/19/18 06:04; Admin Dose 88 MCG; Start 12/18/18 at 06:00 Ferrous Sulfate (Ferrous Sulfate (Ec)) 325 mg TID PO Last administered on 12/19/18at 09:27; Admin Dose 325 MG; Start 12/17/18 at 21:00 Diphenhydramine HCl (Benadryl Liquid Cup) 12.5 mg Q6H PRN PO ITCHING Last administered on 12/17/18at 19:04; Admin Dose 12.5 MG; Start 12/17/18 at 19:00 NIKITA CHONG MD Dec 19, 2018 11:37
[2018-12-19 13:56] VITALS: BP 93/52; PULSE 78; RESP 18
[2018-12-19 19:44] VITALS: BP 140/70; PULSE 60; RESP 16
[2018-12-19] MEDS: SERTRALINE 100 MG TAB PO SCH (21:00)
[2018-12-19] MEDS: LORAZEPAM 1 MG TAB PO PRN (21:32)
[2018-12-20] MEDS: PANTOPRAZOLE (EC) 40 MG TAB PO SCH (06:36)
[2018-12-20] MEDS: LEVOTHYROXINE 88 MCG TAB PO SCH (06:36)
[2018-12-20 06:37] VITALS: BP 127/61; PULSE 87; RESP 16
[2018-12-20 08:23] VITALS: BP 118/56; PULSE 73; RESP 18
[2018-12-20] MEDS: FERROUS SULFATE (EC) 325 MG TAB PO SCH ×2 (08:59→13:39)
[2018-12-20] MEDS: CHOLECALCIFEROL 1,000 UNIT TAB PO SCH (08:59)
[2018-12-20] MEDS: ASPIRIN (EC) 81 MG TAB PO SCH (08:59)
[2018-12-20] MEDS: CELECOXIB 100 MG CAP PO SCH (08:59)
[2018-12-20] MEDS: HYDROmorphONE 1 MG/ML SYG IV PRN ×3 (10:10→18:19)
--- NOTE | 2018-12-20 17:18 | CONS ---
Assessment/Plan Assessment/Plan Problems: (1) Postoperative anemia due to acute blood loss Status: Acute Comment: Improved. Cont. FeSO4 tid after d/c. (2) Anxiety disorder Status: Chronic Comment: Cont. sertraline (3) Major depressive disorder, recurrent, in full remission Status: Chronic Comment: Cont. sertraline (4) Hypothyroidism Status: Chronic Comment: Dose reduced of LT4 and T3 d/c'ed. 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 Ready for transfer to rehab for subsequent care. Consultation Date/Type/Reason Admit Date/Time Dec 16, 2018 at 10:15 Initial Consult Date 12/16/18 Type of Consult Medicine Reason for Consultation Medical Management Requesting Provider: WALDEMAR RIBEIRO Date/Time of Note DATE: 12/20/18 TIME: 17:12 24 HR Interval Summary Constitutional: no complaints, improved Detailed Summary Respiratory: no complaints Cardiovascular: no complaints Gastrointestinal: no complaints Genitourinary: no complaints Musculoskeletal: bone/joint pain (minimal and controlled; surgical site more painful today. Notes likes IV dilaudid more than oral narcotics b/c it works faster) Neurologic: no complaints Exam/Review of Systems Exam Vitals VS - Last 72 Hours, by Label Date Temp Pulse Resp B/P (MAP) Pulse Ox O2 O2 Flow FiO2 Time Delivery Rate 12/20/18 98.2 73 18 118/56 92 Room Air 08:23 (76) 12/20/18 98.1 87 16 127/61 98 Room Air 06:37 (83) 12/19/18 98.0 60 16 140/70 95 Room Air 19:44 (93) 12/19/18 98.0 78 18 93/52 (66) 95 13:56 12/19/18 97.5 82 18 129/67 94 07:26 (87) 12/19/18 21 02:25 12/19/18 98.6 78 18 133/65 95 02:08 (87) 12/18/18 98.3 80 20 135/62 95 Room Air 20:29 (86) 12/18/18 98.8 79 18 126/62 98 Room Air 15:00 (83) 12/18/18 76 12:00 12/18/18 99.1 88 20 122/59 96 Room Air 11:03 (80) 12/18/18 78 08:00 12/18/18 99.1 79 20 117/80 94 Nasal 07:58 (92) Cannula 12/18/18 76 16 120/58 05:41 (78) 12/18/18 98.2 88 18 120/57 92 04:00 (78) 12/18/18 82 04:00 12/18/18 2.0 02:50 12/18/18 79 00:00 12/18/18 98.3 87 18 131/60 93 00:00 (83) 12/17/18 2.0 23:18 12/17/18 82 20:00 12/17/18 98.2 80 20 111/54 92 Nasal 19:50 (73) Cannula 12/17/18 2.0 19:02 Vital Signs Date Temp Pulse Resp B/P (MAP) Pulse Ox O2 O2 Flow FiO2 Time Delivery Rate 12/20/18 98.2 73 18 118/56 92 Room Air 08:23 (76) 12/19/18 21 02:25 12/18/18 2.0 02:50 Intake and Output 12/19/18 12/19/18 12/20/18 1414:59 22:59 06:59 IntakeIntake Total 800 ml BalanceBalance 800 ml Constitutional: alert, oriented, well developed Psych: no complaints, nl mood/affect Respiratory: clear to auscultation, normal air movement Cardiovascular: regular rate and rhythm, nl pulses; No edema, No murmurs/extra sounds, No rub Gastrointestinal: soft, nl liver, spleen, non-tender, bowel sounds; No mass, No rebound or guarding Musculoskeletal: nl extremities to inspection Extremities: normal pulses; No cyanosis, No clubbing, No edema Neurological: [employer] II-XII intact, nl mental status, nl speech, nl strength Results Result Diagram: 12/20/1891112/20/18911 Results 24hrs Laboratory Tests Test 12/20/18 09:12 White Blood Count 10.4 # Red Blood Count 2.87 L Hemoglobin 8.7 L Hematocrit 27.4 #L Mean Corpuscular Volume 95.5 Mean Corpuscular Hemoglobin 30.3 Mean Corpuscular Hemoglobin Concent 31.8 L Red Cell Distribution Width 12.6 Platelet Count 348 # Mean Platelet Volume 9.5 Immature Granulocytes % 0.500 H Neutrophils % 63.7 Lymphocytes % 26.0 Monocytes % 7.2 Eosinophils % 2.1 Basophils % 0.5 Nucleated Red Blood Cells % 0.0 Immature Granulocytes # 0.050 H Neutrophils # 6.7 Lymphocytes # 2.7 Monocytes # 0.8 Eosinophils # 0.2 Basophils # 0.1 Nucleated Red Blood Cells # 0.0 Sodium Level 141 Potassium Level 4.0 Chloride Level 103 Carbon Dioxide Level 30 Anion Gap 8 Blood Urea Nitrogen 12 Creatinine 0.66 Est Glomerular Filtrat Rate mL/min Glucose Level 129 Calcium Level 9.3 Medications Medication Current Medications Cholecalciferol (Vitamin D) 1,000 unit DAILY PO Last administered on 12/20/18 08:59; Admin Dose 1,000 UNIT; Start 12/17/18 at 09:00 Lorazepam (Ativan) 2 mg BID PRN PO SLEEP Last administered on 12/19/18 21:32; Admin Dose 2 MG; Start 12/16/18 at 16:00 Sertraline HCl (Zoloft) 100 mg QHS PO Last administered on 12/16/18 20:53; Admin Dose 100 MG; Start 12/16/18 at 21:00 Hydromorphone HCl (Dilaudid) 1 mg Q3H PRN IV .BREAKTHROUGH PAIN Last administered on 12/20/18 13:40; Admin Dose 1 MG; Start 12/16/18 at 16:00 Celecoxib (Celebrex) 100 mg BID PO Last administered on 12/20/18 08:59; Admin Dose 100 MG; Start 12/17/18 at 09:00 Pantoprazole (Protonix Tab) 40 mg DAILY@06 PO Last administered on 12/20/18 06:36; Admin Dose 40 MG; Start 12/17/18 at 06:00 Magnesium Hydroxide (Milk Of Mag) 30 ml HS PRN PO .CONSTIPATION; Start 12/16/18 at 16:00 Ketorolac Tromethamine (Toradol) 15 mg Q6H PRN IV .PAIN Last administered on 12/16/18 20:53; Admin Dose 15 MG; Start 12/16/18 at 16:00 Naloxone HCl (Narcan) 0.2 mg Q2M PRN IV .RESP RATE; Start 12/16/18 at 16:00 IV Flush (NS 3 ml) 3 ml per protocol IV ; Start 12/16/18 at 16:00 Aspirin (Halfprin) 81 mg BID PO Last administered on 12/20/18 08:59; Admin Dose 81 MG; Start 12/17/18 at 09:00 Ondansetron HCl (Zofran Inj) 4 mg Q4H PRN IV NAUSEA/VOMITING Last administered on 12/19/18 10:56; Admin Dose 4 MG; Start 12/16/18 at 22:00 Levothyroxine Sodium (Synthroid) 88 mcg DAILY@06 PO Last administered on 12/20/18 06:36; Admin Dose 88 MCG; Start 12/18/18 at 06:00 Ferrous Sulfate (Ferrous Sulfate (Ec)) 325 mg TID PO Last administered on 12/20/18at 13:39; Admin Dose 325 MG; Start 12/17/18 at 21:00 Diphenhydramine HCl (Benadryl Liquid Cup) 12.5 mg Q6H PRN PO ITCHING Last administered on 12/17/18 19:04; Admin Dose 12.5 MG; Start 12/17/18 at 19:00 BARBARA LU MD Dec 20, 2018 17:18
[2018-12-20] MEDS: ONDANSETRON 4 MG INJ IV PRN (17:21)
--- NOTE | 2018-12-20 17:21 | PDOCDIS ---
Discharge Instructions DIAGNOSIS Discharge Diagnosis s/p revision failed R total hip arthroplasty CONDITION [id number] Patient Condition: [id number] Good HOME CARE INSTRUCTIONS: [id number] Diet Instructions: [id number] Regular ACTIVITY: [id number] Activity Restrictions: [id number] Slowly Increase Activity Rest between Activity Avoid heavy lifting Avoid Heavy Housework Special Exercises (work w/ PT) [id number] Bathing Restrictions: [id number] Shower FOLLOW UP/APPOINTMENTS Follow-up Plan f/u w/ Dr. Merida as scheduled; f/u w/ PMD in 6 weeks to check thyroid function BARBARA LU MD Dec 20, 2018 17:21
== END 2018-12-20 18:55 | DRG 467 ==
LOC: REC 10:15 → TEL 19:44 → MS1 12-18 14:39
PROVIDERS: ADMIT Orthopaedic Surgery; ATTEND Orthopaedic Surgery
PROC: 0SP90JZ Removal of Synthetic Substitute from Right Hip Joint, Open Approach (ICD-10-PCS; 2018-12-16)
PROC: 0SR904Z Replacement of Right Hip Joint with Ceramic on Polyethylene Synthetic Substitute, Open Approach (ICD-10-PCS; principal; 2018-12-16 11:30)
DX: T84.060A Wear of articular bearing surface of internal prosthetic right hip joint, initial encounter (principal); D62 Acute posthemorrhagic anemia; E03.9 Hypothyroidism, unspecified; F41.9 Anxiety disorder, unspecified; F33.42 Major depressive disorder, recurrent, in full remission; Y83.2 Surgical operation with anastomosis, bypass or graft as the cause of abnormal reaction of the patient, or of later complication, without mention of misadventure at the time of the procedure
CPT/HCPCS: 73530; 80048; 84436; 84443; 84479; 85014; 85018; 85025; 86850; 86900; 86901; 87070; 87102; 87116; 88300; 97110; 97116; 97161; 97167; 97530; 97535; C1713; C1776; J0131; J0171; J0690; J0735; J1100; J1170; J1885; J2370; J2405; J2765; J2795; J7120; P9045